=== PATIENT | male | born 1995 | race Caucasian/White ===

== ENCOUNTER 2020-10-01 11:25 | Emergency (ER) | payer SELFPAY ==
[~2020-10-01] VITALS: Ht 188 cm; Wt 90.7 kg
[2020-10-01] MEDS ORDERED: ONDANSETRON ODT8 MG PO (13:48)
== END 2020-10-01 14:04 | disposition home or self-care (01) ==
LOC: ED 11:25
DX: K52.9 Noninfective gastroenteritis and colitis, unspecified (principal)
CPT/HCPCS: 80053; 81001; 83690; 85025; 96374; 99284-25; J2405; J7030